=== PATIENT | male | born 1970 | race Caucasian/White ===

== ENCOUNTER 2018-02-20 11:07 | Emergency (ER) | payer SELFPAY ==
[2018-02-20 11:08] VITALS: BP 163/115; PULSE 89; RESP 18; TEMP 36.9; O2SAT 95; BMI 28.1
--- NOTE | 2018-02-20 11:39 | ED.VISSUMM ---
- ER Visit Summary Date of Service: 02/20/18 Chief Complaint: Left shoulder pain History of Present Illness: The patient is a 47 M presenting with left shoulder pain. Patient states this started approximately 10 days ago. He states he was working underneath his truck. He was pushing upwards. Since that time he has had pain in his left shoulder that is worsened with movement. He has taken Aleve at home and tried a heating pad. He denies fever. Denies chest pain or shortness of breath. Denies neck pain or elbow pain. He occasionally has a tingling sensation in his left hand. Denies other complaints. Physical Examination: Vitals are stable. Patient is afebrile. Alert no acute distress. HEENT exam is unremarkable. Neck is supple. Nontender Lungs are clear and equal bilaterally. Heart is regular rate and rhythm. Abdomen is soft nontender nondistended. Extremities left posterior shoulder tenderness to palpation with painful active full range of motion. Neurovascularly intact distally. Skin is warm and dry. No focal neurologic deficit. Normal strength and sensation. Remainder of exam is unremarkable. Emergency Department Course and Treatment: Patient is given Toradol, Norflex IM. Left shoulder x-ray shows no acute process. He is advised to continue Aleve at home and is given a prescription for Flexeril. He is advised to follow-up with his primary care physician. He is advised return to ED for worsening complaints. Disposition: Discharge home Impression: Left shoulder strain This note was generated with [employer] dictation software. It may contain incorrect words, spelling, and punctuation that were not noted in review of the chart prior to signing ED Disposition - Plan for ED Patient: Chief Complaint: Upper Extremity Injury Instructions: ED Sprain Shoulder Prescriptions: Cyclobenzaprine [Flexeril] 10 mg PO TID PRN #20 tablet PRN Reason: Muscle Spasm Referrals: Alejandro Crow DO [Primary Care Provider] -
[2018-02-20] MEDS: Orphenadrine 60 MG/2 ML Ampul IM (11:51)
[2018-02-20] MEDS: Ketorolac 60 MG/2 ML Vial IM (11:51)
--- NOTE | 2018-02-20 12:24 | ED.DEP ---
ED Disposition - Plan for ED Patient: Chief Complaint: Upper Extremity Injury Instructions: ED Sprain Shoulder Prescriptions: Cyclobenzaprine [Flexeril] 10 mg PO TID PRN #20 tablet PRN Reason: Muscle Spasm Referrals: Alejandro Crow DO [Primary Care Provider] -
[2018-02-20 12:47] VITALS: BP 143/89; PULSE 78; RESP 16; O2SAT 99
== END 2018-02-20 12:48 | disposition home or self-care (01) ==
LOC: ED 12:33
PROVIDERS: Emergency Provider Emergency Medicine; Family Provider Family Medicine; PCP Family Medicine
DX: S46.812A Strain of other muscles, fascia and tendons at shoulder and upper arm level, left arm, initial encounter (principal); Z72.0 Tobacco use; X50.0XXA Overexertion from strenuous movement or load, initial encounter; Y93.89 Activity, other specified; Y92.008 Other place in unspecified non-institutional (private) residence as the place of occurrence of the external cause; Y99.8 Other external cause status
CPT/HCPCS: 73030; 96372; 99282

== ENCOUNTER 2020-02-21 12:53 | Emergency (ER) | payer SELFPAY ==
[2020-02-21 12:54] VITALS: BP 150/96; PULSE 118; RESP 18; TEMP 36.9; O2SAT 96; BMI 27.6
--- NOTE | 2020-02-21 13:31 | VDLE_ITS ---
Reason For Study: SWELLING RIGHT LEFT CFV is compressible, spontaneous, phasic, GSV is normal. competent and demonstrates normal CFV is compressible, spontaneous, phasic, augmentation. competent, and demonstrates normal Procedure augmentation. Exam performed portable in ED. LEFT FV, POPV, T/P TRUNK, PEROV AND PTV are A preliminary report was called and/or faxed dilated and NONCOMPRESSIBLE. PEROV/PTV are to ED. noncompessible proximally to mid calf. The remainder of the calf veins are compressible. Interpretation Summary Acute deep venous thrombosis left femoral, popliteal, tibioperoneal trunk, peroneal, and posterior tibial veins Patent and compressible left great saphenous veins Normal flow pattern right common femoral vein Ordering Physician: David Toscano Referring Physician: JUSTIN LANDEROS Performed By: Monet Galan, GLADYS, RVT
[2020-02-21 14:04] LABS: Absolute Lymphocyte Count 0.65 X10^3/uL (0.83-4.51); Absolute Neutrophil Count 4.4 X10^3/uL (2.0-7.7); Basophil# 0.04 X10^3/uL; Basophil% 0.7 % (0-1); Eosinophil# 0.26 X10^3/uL; Eosinophils% 4.3 % (0-5); Hematocrit 43.3 % (40-54); Hemoglobin 14.5 g/dL (13.0-16.5); Lymphocyte # 0.65 X10^3/ul (4.0); Lymphocyte % 10.8 % (19-41); Mean Corp Hgb Conc 33.5 g/dL (32-36); Mean Corpuscular Hgb 33.4 pg (27.0-32.0); Mean Corpuscular Volume 99.8 fL (80-94); Monocyte# 0.63 X10^3/uL; Monocyte% 10.5 % (0-10); NRBC Flagged by Analyzer 0 % (0-5); Neutrophil # 4.42 X10^3/uL (2.7-7.7); Neutrophil % 73.5 % (47-70); Platelet Count 125 K/mm3 (150-450); RBC Distribution Width CV 12.6 % (11.6-14.6); RBC Distribution Width SD 46.5 fl (35.1-43.9); Red Blood Count 4.34 M/mm3 (4.6-6.2)
[2020-02-21 14:10] LABS: Partial Thromboplast Time 28.6 Seconds (24.1-36.2)
[2020-02-21 14:13] LABS: ALB/GLOB Ratio 1.1 RATIO (0.9-2.4); AST(SGOT) 46 U/L (15-37); Alanine Aminotransfer ALT/SGPT 41 U/L (16-61); Albumin, Serum 3.4 g/dL (3.2-5.0); Alkaline Phosphatase 102 U/L (45-117); Anion Gap 4 (5-15); BUN 7 mg/dL (7-18); BUN/Creat Ratio 9.2 RATIO (10-20); Calcium,Total 8.6 mg/dL (8.5-10.1); Chloride 106 mmol/L (98-107); Creatinine, Serum 0.76 mg/dL (0.70-1.30); EST Glomerular Filtration Rate 115 mL/min (>60); Est Glom Filt Rate - Afr Amer 139 mL/min (>60); Estimated Creatinine Clearance 111.13 ml/min; Globulin 3.2 g/dL (2.2-4.2); Glucose 107 mg/dL (74-106); Potassium 4.2 mmol/L (3.5-5.1); Protein, Total 6.6 g/dL (6.4-8.2); Sodium Level 139 mmol/L (136-145)
--- NOTE | 2020-02-21 16:09 | ED.DCSUM_ITS ---
- ER Visit Summary Date of Service: 02/21/20 Chief Complaint: Left leg pain and swelling History of Present Illness: The patient is a 49 M who presents with left leg pain and swelling that is been getting worse over the past 1-1/2 weeks. Patient describes his pain is aching and throbbing. Patient states the pain is worse with ambulation. Patient states he has a history of prior DVT and states this feels similar to that. Patient denies any chest pain or shortness of breath. Patient denies any nausea or vomiting. Patient denies any paresthesias or weakness. Physical Examination: Vital signs are stable. Patient is afebrile. Patient is in no acute distress. Musculoskeletal exam reveals tenderness and edema of the left lower leg. There is some erythema. There is no warmth. Pedal pulses are equal bilaterally. There is pain with dorsiflexion of the left ankle. Sensat ion was intact to light touch in all digits. Capillary refill was less than 2 seconds in all digits. Test Results: Venous duplex of the left lower extremity was obtained. The left femoral vein, popliteal vein, peroneal vein, and posterior tibial vein are dilated noncompressible suggesting DVT. CBC showed a slight thrombocytopenia of 125. Comprehensive metabolic profile was within normal limits. Emergency Department Course and Treatment: Patient was given a dose of Eliquis here. Patient was given a prescription for Eliquis. Patient was instructed to keep the leg elevated. Patient was instructed to return if any chest pain or shortness of breath. Patient was instructed to follow-up with his primary care physician in 5 to 7 days. Patient understood and was agreeable with the plan. All questions were answered. Disposition: Discharge home Impression: 1. DVT left lower extremity This note was generated with [employer] dictation software. It may contain incorrect words, spelling, and punctuation that were not noted in review of the chart prior to signing ED Disposition - Plan for ED Patient: Disposition: Home or Assisted Living Diagnosis: DVT (deep venous thrombosis) Instructions: ED DVT Prescriptions: Apixaban [Eliquis] 5 mg PO BID #74 tab Prescription Printed Referrals: Adam Briseno MD [Primary Care Provider] - 5-7 Days
[2020-02-21] MEDS: APIXABAN 5 MG TABLET 10 MG PO (16:33)
[2020-02-21 16:39] VITALS: PULSE 97; RESP 16; O2SAT 97
== END 2020-02-21 16:40 | disposition home or self-care (01) ==
PROVIDERS: Emergency Provider Emergency Medicine; PCP Family Medicine
DX: I82.412 Acute embolism and thrombosis of left femoral vein (principal); I82.452 Acute embolism and thrombosis of left peroneal vein; I82.442 Acute embolism and thrombosis of left tibial vein; I82.432 Acute embolism and thrombosis of left popliteal vein; Z86.718 Personal history of other venous thrombosis and embolism; I10 Essential (primary) hypertension; Z72.0 Tobacco use
CPT/HCPCS: 80053; 85025; 85610; 85730; 93971; 99285; A4216